=== PATIENT | male | born 1995 | race Caucasian/White ===

== ENCOUNTER 2023-04-12 19:04 | Emergency (ER) | payer MEDICAID, SELFPAY ==
[2023-04-12 19:07] VITALS: BP 170/101; PULSE 83; RESP 14; TEMP 35.9; O2SAT 100; BMI 41.5
--- NOTE | 2023-04-12 19:39 | EX.ED.VIS.PS ---
HPI HPI - Psych History of Present Illness Chief Complaint: Mental Health Informant: patient Narrative Narrative: Patient has longstanding history of depression, he has been having suicidal thoughts especially about a month and a half ago when he was thinking of plans but he states he got through that and does not have any suicidal ideation at this time. He states he is living in a sober house. 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 He has been feeling very down. He stopped going to counseling about 6 years ago. He does not use any drugs or alcohol now. He states he has really been having episodes of anxiety and panic, tonight there was 1 where he was beating himself in the head with his hands, and one of the other residents was concerned and told him to come to the hospital to get help which is why he is here voluntarily on his own. [facility] Medical History Anxiety Depression Home Medications NK 04/12/23 [History Last Taken Unknown] Allergy/AdvReac Type Severity Reaction Status Date / Time No Known Allergies Allergy Verified 04/12/23 19:07 Surgical History Hx of tonsillectomy Social History Smoking Status: Current every day smoker tobacco type: cigarettes, e-cigarettes and smokeless tobacco ROS ROS ED Constitutional Constitutional ED: Denies chills or fever(s) Eyes Eyes: Denies change in vision or diplopia ENT ENT ED: Denies rhinorrhea or sore throat Cardiovascular Cardiovascular: Denies chest pain or palpitations Respiratory/Chest Respiratory/Chest: Denies cough or dyspnea Gastrointestinal Gastrointestinal: Denies abdominal pain, diarrhea, nausea or vomiting Genitourinary Genitourinary ED: Denies dysuria or hematuria Musculoskeletal Musculoskeletal: Denies back pain or neck pain Integumentary Denies abscess or rash Neurologic Neurologic: Denies headache(s), paresthesias or weakness Psychiatric Psychiatric: Reports anxiety, depression and suicidal thoughts; Denies homicidal ideation or suicidal ideation EXAM Physical Exam Const Vital Signs: 04/12/23 19:07 Temperature 96.7 F L Temperature Source Temporal Pulse Rate 83 Respiratory Rate 14 Blood Pressure 170/101 H Blood Pressure Mean 124 Pulse Ox 100 Oxygen Delivery Method Room Air Positive well nourished and well developed General Appearance ED: well developed and NAD HEENT Reports moist mucous membranes normocephalic and atraumatic Eyes PERRL and EOMs intact bilaterally General Eye ED: Negative for scleral icterus Neck no lymphadenopathy and supple Neck Narrative: No thyromegaly General: Negative for tenderness Resp normal respiratory effort and clear to auscultation bilaterally Cardio no murmurs Rate: regular rate Rhythm: regular rhythm GI non-tender and non-distended Auscultation: normoactive bowel sounds Palpation: soft Back/Spine no CVA tenderness and normal ROM Extremity normal to inspection General Extremety ED: Negative for edema General Extremity: Negative for edema Neuro oriented x3, CN's II-XII intact bilaterally, no sensory deficits noted and gait normal Sensorium / Orientation: alert Motor Exam: strength 5/5 throughout Psych mental status grossly normal, thought process normal, cooperative, activity/motor behavior normal and denies homicidal ideation Mood & Affect: depressed Thought Content: suicidality Insight: insight good Judgement: fair Skin Lesions: no lesions Rashes: no rashes MDM MDM MDM Narrative Medical decision making narrative: Labs and toxicology obtained and unremarkable. He has some minor bruises on his head but no hematomas, crepitance, depression, or symptoms of a head injury, and meets [place] head trauma CT criteria for observation does not require any emergent imaging to rule out intracranial injury. Patient is medically cleared for psychiatric evaluation. Crisis spoke with the patient and agrees that he will benefit from inpatient stay. He is amenable to this. Placement is pending at this time. Lab Data Attestation: I reviewed the patient's lab results. Labs: Laboratory Results - last 24 hr 04/12/23 19:40 WBC 9.1 RBC 5.81 Hgb 16.1 Hct 47.2 MCV 81.2 MCH 27.7 MCHC 34.1 RDW Std Deviation 36.2 RDW Coeff of Rory 12.2 Plt Count 294 MPV 10.7 Immature Gran % (Auto) 0.200 Neut % (Auto) 63.0 Lymph % (Auto) 27.4 [place] % (Auto) 7.8 Eos % (Auto) 1.0 Baso % (Auto) 0.6 Absolute Neuts (auto) 5.7 Absolute Lymphs (auto) 2.49 Nucleated RBC % 0 Sodium 137 Potassium 3.6 Chloride 105 Carbon Dioxide 27.0 Anion Gap 5 BUN 18 Creatinine 1.02 Estim Creat Clear Calc 135.06 Est GFR (MDRD) Af Amer 112 Est GFR (MDRD) Non-Af 93 BUN/Creatinine Ratio 17.6 Glucose 94 Calcium 9.6 Urine Opiates Screen NEGATIVE Urine Methadone Screen NEGATIVE Ur Barbiturates Screen NEGATIVE Ur Phencyclidine Scrn NEGATIVE Ur Amphetamines Screen NEGATIVE MDMA (Ecstasy) Screen NEGATIVE U Benzodiazepines Scrn NEGATIVE Urine Cocaine Screen NEGATIVE U Cannabinoids Screen NEGATIVE Ur Drug Screen Comment Ethyl Alcohol < 3.0 Management Discussion w/another healthcare provider: group social worker/Case management Discharge Plan Triage Chief Complaint: Mental Health ED Provider: Chun Martinez Dx/Rx/DC Orders Clinical Impression: Suicidal thoughts, Depression, Suicide gesture Prescriptions: No Action NK Primary Care Provider: Care Physician,No Primary Referrals: Care Physician,No Primary [Primary Care Provider] - Disposition Disposition: Psychiatric Hospital or Unit
[2023-04-12 19:59] LABS: Absolute Lymphocyte Count 2.49 X10^3/uL (0.83-4.51); Absolute Neutrophil Count 5.7 X10^3/uL (2.0-7.7); Basophil# 0.05 X10^3/uL; Basophil% 0.6 % (0-1); Eosinophil# 0.09 X10^3/uL; Hematocrit 47.2 % (40-54); Hemoglobin 16.1 g/dL (13.0-16.5); Lymphocyte # 2.49 X10^3/ul (0.83-4.51); Lymphocyte % 27.4 % (19-41); Mean Corp Hgb Conc 34.1 g/dL (32-36); Mean Corpuscular Hgb 27.7 pg (27.0-32.0); Mean Corpuscular Volume 81.2 fL (80-94); Mean Platelet Vol. 10.7 fl (6.2-12.0); Monocyte# 0.71 X10^3/uL; Monocyte% 7.8 % (0-10); NRBC Flagged by Analyzer 0 % (0-5); Neutrophil # 5.72 X10^3/uL (2.7-7.7); Platelet Count 294 K/mm3 (150-450); RBC Distribution Width CV 12.2 % (11.6-14.6); RBC Distribution Width SD 36.2 fl (35.1-43.9); Red Blood Count 5.81 M/mm3 (4.6-6.2); White Blood Count 9.1 K/mm3 (4.4-11.0)
--- OUTSIDE RECORDS SUMMARY | 2023-04-12 20:05 | XMS RPT_ITS | CCD ---
Author Name Unknown Address [address] [place] [address] Organization [facility] Care Team Providers Care Financial Planning Assistant Name Role Phone YAMILE SENIOR Unavailable Unavailable NICHOLAS FRANCO Unavailable Unavailable AL WATSON Unavailable Unavailable NO FAMILY DOCTOR, NO FAMILY DOCTOR Unavailable Unavailable JEET LOZANO Unavailable Unavailable EDWIN TIRADO Unavailable Unavailable NO FAMILY DOCTOR, NO FAMILY DOCTOR Unavailable Unavailable UNKNOWN, PROVIDER Unavailable Unavailable Darren Vaca Primary Care Provider Susan Mckay DO Primary Care Provider [phone] AA NO PCP, NO PCP Primary Care Unavailable DAYO HERNANDEZ Attending Unavailable DAYO HERNANDEZ Admitting Unavailable TYRONE MCCALL Attending Unavailable Medications Current Medications Medication Drug Class(es) Dates Sig (Normalized) Sig (Original) ibuprofen 800 mg oral tablet (1 source) Nonsteroidal Anti-inflammatory Drug Start: 07-14-2021 take 1 tablet by mouth twice daily as needed for pain ibuprofen (ADVIL;MOTRIN) 800 MG tablet Take 1 tablet by mouth 2 times daily as needed for Pain 180 tablet 1 07/14/2021 Active Completed/Discontinued Medications Medication Drug Class(es) Dates Sig (Normalized) Sig (Original) benztropine mesylate 1 mg oral tablet (2 sources) Anticholinergic, Antihistamine Start: 08-15-2012 take 1 tablet by mouth twice daily benztropine 1 mg tablet Take 1 tablet by mouth twice daily. 0 08/15/2012 Active Problems Active Problems Problem Classification Problem Date Documented Date Episodic/Chronic Abdominal pain (2 sources) Left lower quadrant pain; Translations: [Left lower quadrant pain] Onset: 03-31-2022 Episodic Adjustment disorders (2 sources) Adjustment disorder with mixed disturbance of emotions AND conduct; Translations: [Adjustment disorder with mixed disturbance of emotions and conduct] Onset: 05-08-2012 Chronic Anxiety disorders (3 sources) Anxiety; Translations: [Anxiety] Onset: 05-08-2012 Chronic Attention-deficit conduct and disruptive behavior disorders (2 sources) Oppositional defiant disorder; Translations: [Oppositional defiant disorder] Onset: 05-08-2012 Chronic Cardiac dysrhythmias (4 sources) Tachycardia; Translations: [Palpitations] Onset: 04-09-2020 04-09-2020 Episodic Mood disorders (1 source) Bipolar disorder, current episode depressed, severe, without psychotic features; Translations: [Bipolar disord, crnt epsd depress, sev, w/o psych features] Onset: 04-11-2017 Chronic Nonspecific chest pain (1 source) Chest pain; Translations: [Other chest pain] Episodic Other lower respiratory disease (3 sources) Dyspnea; Translations: [SOB (shortness of breath)] 04-09-2020 Episodic Other nutritional; endocrine; and metabolic disorders (1 source) Severe obesity; Translations: [Class 3 severe obesity due to excess calories without serious comorbidity with body mass index (BMI) of 40.0 to 44.9 in adult (HCC)] Chronic Other nutritional; endocrine; and metabolic disorders (2 sources) Obesity; Translations: [Obesity] Onset: 05-08-2012 05-08-2012 Chronic Other screening for suspected conditions (not mental disorders or infectious disease) (1 source) Patient encounter status; Translations: [Encounter for screening for lipoid disorders] Episodic Other upper respiratory disease (2 sources) Other specified disorders of nose and nasal sinuses; Translations: [OTH SPEC D/O NOSE NASAL SINUSES] Onset: 12-03-2021 Episodic Poisoning by other medications and drugs (1 source) Poisoning by unspecified drugs, medicaments and biological substances, accidental (unintentional), initial encounter; Translations: [Poisoning by unspecified drugs, medicaments and biological substances, accidental (unintentional), initial encounter] Onset: 12-03-2016 Screening and history of mental health and substance abuse codes (1 source) Personal history of nicotine dependence; Translations: [PERSONAL HISTORY OF NICOTINE DEPEND] Onset: 12-03-2021 Episodic Skin and subcutaneous tissue infections (1 source) Cellulitis of face; Translations: [CELLULITIS OF FACE] Onset: 12-03-2021 Episodic Substance-related disorders (3 sources) Other psychoactive substance abuse, uncomplicated; Translations: [Polysubstance abuse ] Onset: 05-08-2012 Chronic Suicide and intentional self-inflicted injury (1 source) Poisoning by heroin, intentional self-harm, initial encounter; Translations: [Poisoning by heroin, intentional self-harm, initial encounter] Onset: 06-17-2017 Unclassified (2 sources) Suicidal ideations / R45.851(ICD-9) Onset: 05-28-2017 Unclassified (1 source) Nicotine dependence, unspecified, uncomplicated / F17.200(ICD-9) Onset: 05-28-2017 Unclassified (1 source) Opioid abuse, in remission / F11.11(ICD-9) Onset: 05-28-2017 Unclassified (2 sources) Encounter for other general examination / Z00.8(ICD-9) Onset: 05-28-2017 Unclassified (2 sources) Bipolar disord, crnt epsd depress, sev, w/o psych features / F31.4(ICD-9) Onset: 04-11-2017 Unclassified (1 source) Opioid abuse, uncomplicated / F11.10(ICD-9) Onset: 04-11-2017 Unclassified (1 source) Anxiety disorder, unspecified / F41.9(ICD-9) Onset: 04-11-2017 Unclassified (1 source) Attention-deficit hyperactivity disorder, unspecified type / F90.9(ICD-9) Onset: 04-11-2017 Unclassified (1 source) Cannabis abuse, uncomplicated / F12.10(ICD-9) Onset: 04-11-2017 Unclassified (1 source) Nausea / R11.0(ICD-9) Onset: 04-11-2017 Unclassified (1 source) Insomnia, unspecified / G47.00(ICD-9) Onset: 04-11-2017 Unclassified (1 source) Nicotine dependence, cigarettes, uncomplicated / F17.210(ICD-9) Onset: 04-11-2017 Past or Other Problems Problem Classification Problem Date Documented Da te Episodic/Chronic Suicide and intentional self-inflicted injury (3 sources) Suicidal ideations; Translations: [Suicidal thoughts] Onset: 05-08-2012 Episodic Unclassified (1 source) Encounter for other general examination; Translations: [Encounter for other general examination] Onset: 05-28-2017 Results Test Name Value Interpretation Reference Range Facil ity Vital Signs Date Time Vital Sign Value Performing Clinician Beulah zavaleta 04-09-2020 08:19-0500 Body weight 126.[address] [facility] 04-09-2020 08:19-0500 BP Diastolic 84 mm[Hg] [facility] 04-09-2020 08:19-0500 BP Systolic 144 mm[Hg] [facility] 04-09-2020 08:19-[address] [facility] 04-09-2020 08:19-0500 Pulse (Heart Rate) 93 /min [facility] 04-09-2020 08:19-0500 Pulse Oximetry 98 % [facility] 04-09-2020 08:19-0500 Respiratory Rate 18 /min [facility] Encounters Encounter Date Encounter Type Care Provider Facility Start: 03-31-2022 End: 03-31-2022 ambulatory [facility] Start: 11-02-2021 End: 11-03-2021 ambulatory NO PCP AA NO PCP [facility] Start: 07-14-2021 End: 07-14-2021 Subsequent hospital visit by physician Susan Mckay DO Work Phone: [facility] Procedures Date Procedure Procedure Detail Performing Clinician Start: 07-14-2021 Comprehensive metabo lic panel Susan Mckay DO Work Phone: Start: 07-14-2021 Lipid panel Susan Mckay DO Work Phone: Start: 04-09-2020 Ecg routine ecg w/le ast 12 lds w/i&r Eleuterio Mcmahon Work Phone: Start: 04-09-2020 CARDIAC [facility] Prov[facility] er Start: 06-17-2017 URINE DRUG SCREEN, COMPREHENSIVE YAMILE LE Start: 06-17-2017 ASSIST WITH FEEDING PATIENT YAMILE LE Start: 06-17-2017 ENCOURAGE FLUIDS YAMILE L E Start: 12-03-2016 PULSE OXIMETRY, CONTINUOUS YAMILE LE Start: 12-03-2016 TELEMETRY MONITORING TO [place] [facility] Plan of Treatment Date Care Activity Detail Author Start: 12-06-2022 DTaP/Tdap/Td vaccine (2 - Td or Tdap) DTaP/Tdap/Td vaccine (2 - Td or Tdap) [facility] Start: 02-04-2022 Depression Screen Depression Screen [facility] Start: 11-19-2021 Influenza vaccination Flu vaccine (Season Ended) [facility] Start: 08-04-2021 End: 08-04-2021 Patient encounter procedure 08/04/2021 Office Visit Family Medicine Susan Mckay, DO [address] [place] [address] [facility] Start: 11-20-2019 Influenza vaccination INFLUENZA (#1) [facility] Start: 07-19-2014 Urine microalbumin profile DTAP,TDAP,TD (1 - Tdap) [facility] Start: 07-19-2013 HEPATITIS C SCREENING HEPATITIS C SCREENING [facility] Start: 07-19-2013 HIV SCREENING HIV SCREENING [facility] Start: 07-19-2010 HIV screening HIV screen [facility] Start: 07-19-2006 HPV VACCINE (1 - Male 2-dose series) HPV VACCINE (1 - Male 2-dose series) [facility] Start: 07-19-2005 MENINGOCOCCAL B: Consider based on risk (1 of 2 - Risk Bexsero 2-dose series) MENINGOCOCCAL B: Consider based on risk (1 of 2 - Risk Bexsero 2-dose series) [facility] Start: 07-19-2000 COVID-19 Vaccine (1) COVID-19 Vaccine (1) [facility] Start: 07-19-1996 Varicella vaccine (1 of 2 - 2-dose childhood series) Varicella vaccine (1 of 2 - 2-dose childhood series) [facility] End: 04-09-2021 Echocardiography ECHO Cardiology Routine Rapid heart beat 1 Occurrences starting 04/09/2020 until 04/09/2021 [facility] Immunizations Immunization Date Immunization Notes Care Provider Fa cility 12-06-2012 tetanus toxoid, redu mannie diphtheria toxoid, and acellular pertussis vaccine, adsorbed Susan Mckay DO Work Phone: [facility] Work Phone: Payers Date Payer Category Payer Medicaid [facility] MEDICAID [facility] [employer] MEDICAID [id number] 2020-Present Medicaid [id number] 2019 Unknown [facility] GENERIC [id number] 2019-Present [id number] 2016 Medicare [id number] 1995 Unknown [id number] 1959 Private Health Insurance [id number] Unknown [id number] Social History Date Type Detail Facility Start: 04-09-2020 End: 02-04-2021 Tobacco smoking status [facility] Former smoker [facility] Start: 04-09-2020 Tobacco use and exposure Current user [facility] Start: 04-09-2020 Alcohol intake Current drinke r of alcohol (finding) [facility] Start: 1995 Sex Assigned At Not on file [facility] Start: 07-04-2021 End: 07-14-2021 Exposure to SARS-CoV-2 (event) Not sure [facility] End: 02-04-2019 History of tobacco use Current smoker [facility] Work Phone: End: 02-04-2019 History of tobacco use Cigarette Smoker [facility] Work Phone: Start: 02-04-2021 Cigarettes smoked current (pack per day) - Reported [address] [facility] Work Phone: Start: 02-04-2021 Tobacco use and exposure Smokeless tobacco non-user [facility] Work Phone: Start: 07-14-2021 Alcohol intake Ex-drinker (finding) [facility] Work Phone: Start: 04-20-2016 History SDOH Alcohol Comment occ [facility] Work Phone: Start: 01-25-2011 Tobacco Comment smokes outside [facility] Work Phone: Evaluation note Note Date & Type Note Facility documented in this encounter [facility] Work Phone: Summary Purpose Family History No Family History Records FoundNo Family History Records FoundNo Family History Records FoundNo Family History Records FoundNo Family History Records FoundNo Family History Records Found Advance Directives No Advanced Directives Records FoundDocuments on File Type Date Recorded Patient Client Customer Manager Expl anation Advance Directive(s) 03/02/2019 11:45 AM Documents on File Type Date Recorded Patient Client Customer Manager Expl anation ACP-Advance Directive ACP-[employer] of [employer] Instructions * Patient Instructions* Eleuterio Mcmahon - 04/09/2020 8:52 AM EST Tachycardia (Fast Heartbeat) What is tachycardia? Tachycardia is a resting heart rate that stays above 100 beats per minute when you are resting. Thenormal adult heart rate ranges from about 50 to 100 beats per minute. What is the cause? An electrical signal in your heart starts each heartbeat, causing the heart muscle to squeeze (contract). Normally, this signal starts in the upper right chamber of the heart (the right atrium) at a place called the sinus node. The signal then follows pathways to the upper left atrium and to the lower chambers of the heart (the ventricles). Many different things can cause a fast resting heart rate. Some of the conditions that can cause your heart to beat faster are: Anemia High blood pressure Fever Stress Thyroid problems Problems with the heart can cause a fast heart rate. For example: Changes in the electrical signal that causes your heart to beat can make your heart beat faster. Muscles in the upper chambers of the heart may tend to quiver and send random signals to the lower chambers of the heart. The heartbeat may start in the lower chambers of the heart rather than the upper chamber. What are the symptoms? The main symptom is feeling your heart beating fast. Other symptoms may include: Lightheadedness or fainting Nausea Cold sweat Shortness of breath Chest pain Weakness Contact your healthcare provider if you have any of these symptoms in addition to a fast heartbeat. How is it diagnosed? Your healthcare provider will ask about your symptoms and medical history and examine you. Tests may include: Blood tests Chest X-rays An ECG (also called an EKG or electrocardiogram), which measures and records your heartbeat. You may have an ECG while you are resting or while you exercise on a treadmill. You may also be asked to wear a small portable ECG monitor for a few days or longer. An electrophysiology study, which uses tiny wires put into your heart through your veins to look atthe electrical paths in your heart How is it treated? The treatment depends on the type of tachycardia that you have. Treatment may include: Medicine to slow your heartbeat Ablation, which uses a small tube called a catheter to deliver electrical pulses to the inside of the heart. The electrical pulses make small scars that block abnormal electrical pathways. This helpsyou have a regular heart rhythm. An implantable cardiac defibrillator (ICD), which is a device that can shock the heart back to a regular rhythm. In cases of life-threatening heart rhythm problems, ICDs can provide an instant, life-saving electrical shock before medical help arrives. You may also receive treatment for any health problems you have that may be causing tachycardia. How can I take care of myself? If you have heart disease, high blood pressure, or another medical problem, follow your treatment plan. Be sure to take all medicines as prescribed by your provider. Try to have a heart-healthy lifestyle: Eat a healthy diet. Try to keep a healthy weight. If you are overweight, lose weight. Stay fit with the right kind of exercise for you. Learn ways to manage stress. If you smoke, try to quit. Talk to your healthcare provider about ways to quit smoking. If you want to drink alcohol, ask your healthcare provider how much is safe for you to drink. Try to get at least 7 to 9 hours of sleep each night. Ask your provider: How and when you will hear your test results How long it will take to recover What activities you should avoid and when you can return to your normal activities How to take care of yourself at home What symptoms or problems you should watch for and what to do if you have them Make sure you know when you should come back for a checkup. How can I help prevent tachycardia? There is no specific way to prevent tachycardia, but a healthy lifestyle can help prevent heart disease, which can cause tachycardia. Developed by [employer]. Published by [employer]. Copyright 2014 [employer] and/or one of its subsidiaries. All rights reserved. = documented in this encounter History of Present Illness * Eleuterio Mcmahon - 04/09/2020 8:47 AM EST PRIMARY CARE PHYSICIAN: Darren Vaca MD ([facility]) [facility] [address] [place] [address] REFERRING PHYSICIAN: SELF CHIEF COMPLAINT: Patient presents with: Cardiology Follow Up : SOB HPI: Mr Carbajal is seeing me today to establish cardiac care. From a cardiac standpoint, he has a history of anxiety, attention deficit disorder. He also has a history of polysubstance disorder, but quit smoking, drugs around 2018. He started going to the islam, and has been clean since. He did admit to eating unhealthy (large pizza at [employer], milkshakes). He was also heavy on caffeine. Around early February 2020, he noticed that his heart was racing. Most of the times, the trigger was a large unhealthy meal. He started cutting back on caffeine around mid February, and started to notice that the palpitations were already better. He denies chest pain, shortness of breath, lightheadedness, loss of c onsciousness. He has a 4-month-old son, and is expecting another baby soon. He wanted to make sure that he was healthy, and would be around long enough to take care of the kids. He denies any family history of sudden on the mother side of his family. He does not know thefather's side of his family very well. PAST MEDICAL HISTORY Diagnosis Date Anxiety Attention deficit hyperactivity disorder Impulsive Rapid heart rate SOB (shortness of breath) Substance abuse (HCC) PAST SURGICAL HISTORY Procedure Laterality Date MYRINGOTOMY HX TONSILLECTOMY HX SOCIAL HISTORY Social History Tobacco Use Smoking status: Former Smoker Smokeless tobacco: Current User Substance Use Topics Alcohol use: Yes Drug use: Not Currently Types: Marijuana, Heroin, Narcotics FAMILY HISTORY Problem Relation Age of Onset Thyroid Mother ALLERGIES: ALLERGIES No Known Allergies MEDICATIONS: benztropine 1 mg tablet Take 1 tablet by mouth twice daily. QUEtiapine (SEROQUEL) 100 mg tablet Take 1 tablet by mouth daily at bedtime. sertraline (ZOLOFT) 100 mg tablet Take 1 tablet by mouth once daily. guanFACINE (INTUNIV) 1 mg ER 24 hr tablet(s) Take 1 tablet by mouth once daily. gabapentin (NEURONTIN) 600 mg tablet Take 1 tablet by mouth three times daily. metFORMIN ER (GLUCOPHAGE XR) 500 mg 24 hr tablet Take 1 tablet by mouth once daily. REVIEW OF SYSTEMS: GENERAL: Negative for:Weight loss and Weight gain HEENT: Negative for:Nosebleeds RESPIRATORY: Negative for:Shortness of breath GASTROINTESTINAL: Negative for:Blood in stool MUSCULOSKELETAL: Negtive for: Muscle or joint pain, stiffness, Joint swelling SKIN: No rash HEMATOLOGICAL/LYMPHATIC: Negative for: Easy bruising and Easy bleeding CARDIOVASCULAR: As stated in HPI. 10 system review negative except as stated in HPI I have confirmed and edited as necessary, the Past, Family, Social History and Review Of Systems, obtained by my office staff. PHYSICAL EXAMINATION: BP 144/84 Pulse 93 Resp 18 Ht 5' 8 (1.73m) Wt 279 lb 9.6 oz (126.8kg) SpO2 98[room air]% BMI 42.52 kg/(m^2). General: Well appearing, in no acute distress, speaking in complete sentences., Well appearing. Psych: Normal Affect Eyes: No subconjunctival hemorrhage Skin: No rash, bruising Oropharynx: Mucous membranes normal Neck: no jugular venous distention, no carotid bruits. Lymph: No cervical lymphadenopathy Lungs: Clear to auscultation bilaterally, no wheezing or rhonchi. Heart: S1, S2 normal, no murmur Extremities: No peripheral edema Neuro: Grossly nonfocal ASSESSMENT/PLAN: 1. Rapid heart beat - ICD9: 785.0, ICD10: R00.0 (primary diagnosis) As described above, his symptoms are mostly brought on by an unhealthy meal, caffeine. His twelve-lead EKG in the office today did not reveal any epsilon waves, delta waves. I believe he may have hadbouts of sinus tachycardia. In any case, I will start his work-up with a thyroid panel, and echocardiogram and an event monitor. Any further recommendations will depend on the results of the same. I will hold off on starting any rate control therapy yet. - ECG B/O W INTERP (MED OFFICE) - TSH BLD - T3 FREE BLD - T4 FREE/FREE THYROX - EVENT MONITOR - ECHO 2. SOB (shortness of breath) - ICD9: 786.05, ICD10: R06.02 Check an echocardiogram. He was found to have an incomplete right bundle branch block on his twelve-lead EKG. - ECG B/O W INTERP (MED OFFICE) 3. Anxiety - ICD9: 300.00, ICD10: F41.9 From what he tells me this is fairly well controlled. I asked him to discuss this with his primary care provider 4. Class 3 severe obesity due to excess calories without serious comorbidity with body mass index (BMI) of 40.0 to 44.9 in adult ([facility]) - ICD9: 278.01, V85.41, ICD10: E66.01, Z68.41 Stable - Behavioral intervention. I discussed healthy diet, lifestyle modifications in detail with him. Eleuterio Mcmahon MD The above note was partially created using a dictation recognition software. A reasonable attempt has been made to correct any errors. documented in this encounter Assessments Diagnosis Rapid heart beat- Primary Tachycardia, unspecified SOB (shortness of breath) Shortness of breath Anxiety Anxiety state, unspecified Class 3 severe obesity due to excess calories without serious comorbidity with body mass index (BMI) of 40.0 to 44.9 in adult ([facility]) Additional Source Comments (unrecognized sect ion and content) No Status Records FoundNo Status Records FoundNo Status Records FoundNo Status Records FoundNo Status Records FoundNo Status Records Found INFORMATION SOURCE (unrecogn ized section and content) DATE CREATED AUTHOR AUTHOR'S ORGANIZ ATION 09/09/2017 [facility] DATE CREATED AUTHOR AUTHOR'S ORGANIZ ATION 04/09/2020 [facility] DATE CREATED AUTHOR AUTHOR'S ORGANIZ ATION 11/11/2021 [facility] DATE CREATED AUTHOR AUTHOR'S ORGANIZ ATION 12/18/2021 [facility] DATE CREATED AUTHOR AUTHOR'S ORGANIZ ATION 04/01/2022 [facility] Source Comments (unrecognize d section and content) In the event this informatio n is protected by the Federal Confidentiality of Alcohol and Drug Abuse Patient Records regulations: The Federal rules restrict any use of the information to criminally investigate or prosecute any alcohol or drug abuse patient.[facility] the event this information is protected by the Federal Confidentiality of Alcohol and Drug Abuse Patient Records regulations: The Federal rules restrict any use of the information to criminally investigate or prosecute any alcohol or drug abuse patient.[facility] Reason for Visit (unrecogniz ed section and content) Avis Duffy - 04/09/2020 8:23 AM EST Nursing Notes (unrecognized section and content) denies cardiac complaints or symptoms. documented in this encounter Care Teams (unrecognized sec tion and content) FOR RECORDS PERTAINING TO PATIENTS WHO ARE OR HAVE BEEN ENROLLED IN A CHEMICAL DEPENDENCY/SUBSTANCEABUSE PROGRAM, SOME INFORMATION MAY BE OMITTED. This clinical summary was aggregated from multiple sources. Caution should be exercised in using it in the provision of clinical care. This summary normalizes information from multiple sources, and as a consequence, information in this document may materially change the coding, format and clinical context of patient data. In addition, data may be omitted in some cases. CLINICAL DECISIONS SHOULD BE BASED ON THE PRIMARY CLINICAL RECORDS. [facility]. provides no warranty or guarantee of the accuracy or completeness of information in this document.
[2023-04-12 20:13] LABS: Anion Gap 5 (5-15); BUN 18 mg/dL (7-18); BUN/Creat Ratio 17.6 RATIO (10-20); Calcium,Total 9.6 mg/dL (8.5-10.1); Chloride 105 mmol/L (98-107); Creatinine, Serum 1.02 mg/dL (0.70-1.30); EST Glomerular Filtration Rate 93 mL/min (>60); Est Glom Filt Rate - Afr Amer 112 mL/min (>60); Estimated Creatinine Clearance 135.06 ml/min; Glucose 94 mg/dL (74-106); Potassium 3.6 mmol/L (3.5-5.1); Sodium Level 137 mmol/L (136-145)
[2023-04-12 20:19] LABS: Alcohol, Blood (Medical)-Serum < 3.0 mg/dL
[2023-04-12 20:23] LABS: Amphetamine Urine VISTA NEGATIVE (<1000 ng/mL); Barbiturate Urine VISTA NEGATIVE (< 200 ng/mL); Benzodiazepine Urine VISTA NEGATIVE (< 200 ng/mL); Cocaine Urine VISTA NEGATIVE (< 300 ng/mL); Ecstacy Urine VISTA NEGATIVE (< 500 ng/mL); Methadone Urine VISTA NEGATIVE (< 300 ng/mL); PCP Urine VISTA NEGATIVE (< 25 ng/mL); THC Urine VISTA NEGATIVE (< 50 ng/mL); Vista UDS pH Range 5
[2023-04-12 23:05] VITALS: BP 138/81; PULSE 72; RESP 16; O2SAT 97
--- NOTE | 2023-04-13 01:09 | ED.RN ---
Accepted Dr. Mary Banks, 400 unit, nurse to nurse [phone]
[2023-04-13 03:50] VITALS: BP 149/81; PULSE 88; RESP 23; O2SAT 99
[2023-04-13 06:38] VITALS: BP 127/71; PULSE 77; RESP 17; O2SAT 97
--- NOTE | 2023-04-13 07:00 | NURSING ---
PER ANETA BLANCHARD, NEW ETA IS [phone]
--- NOTE | 2023-04-13 09:08 | ED.RN ---
Attempted to call report on patient to CLAUDIA Watt left.
== END 2023-04-13 09:13 ==
PROVIDERS: Emergency Provider Emergency Medicine; Visit Provider Emergency Medicine
DX: F32.A Depression, unspecified (principal); R45.851 Suicidal ideations; S00.93XA Contusion of unspecified part of head, initial encounter; X83.8XXA Intentional self-harm by other specified means, initial encounter; F41.9 Anxiety disorder, unspecified; F17.210 Nicotine dependence, cigarettes, uncomplicated; F17.290 Nicotine dependence, other tobacco product, uncomplicated; F17.220 Nicotine dependence, chewing tobacco, uncomplicated
CPT/HCPCS: 80048; 80307; 80320; 85025; 99285; G0480